=== PATIENT | female | born 1980 | race Asian ===

== ENCOUNTER 2016-10-24 11:07 | Emergency (ER) | payer SELFPAY ==
[~2016-10-24] VITALS: Ht 167.6 cm; Wt 63.0 kg
[2016-10-24 11:45] VITALS: BP 111/49
[2016-10-24] MEDS ORDERED: LORAZEPAM 1MG TABLET PO ONE (14:15)
== END 2016-10-24 14:58 | disposition home or self-care (01) ==
LOC: ER 14:51
DX: Z76.0 Encounter for issue of repeat prescription (principal); F41.9 Anxiety disorder, unspecified; G43.909 Migraine, unspecified, not intractable, without status migrainosus; F32.9 Major depressive disorder, single episode, unspecified; F17.210 Nicotine dependence, cigarettes, uncomplicated; Z59.0 Homelessness
CPT/HCPCS: 99282; 99406